=== PATIENT | female | born 1960 | race Caucasian/White ===

== ENCOUNTER 2016-06-12 13:53 | Emergency (ER) | payer MEDICARE, MEDICAID ==
[~2016-06-12] VITALS: Ht 165.1 cm; Wt 67.2 kg
[~2016-06-12 13:53] MED LIST: ALBU18HF2 INH; ASPI81TA2 PO; CALC3.8S EA NOSTRIL; IPRA3AMP AEROSOL; RANI150T7 PO
[2016-06-12 13:57] VITALS: Ht 165.1 cm; Wt 67.2 kg
--- OUTSIDE RECORDS SUMMARY | 2016-06-12 13:57 | XMS REPORT | Continuity of Care Document ---
Author Author [facility] Organization [facility] Address Unknown Phone Unavailable Care Team Providers Care Shutdown Coordinator Name Role Phone Nixon HERNANDEZ MD Primary Care Physician [phone] Insurance Providers Guarantor Myriam Boyd Address [address] [place] [id number] Email DENIED 16 Payer [facility] Plan Policy Number [id number] Subscriber's Name Myriam Boyd Relationship 18 Self Effective Date 16 Expiration Date 16 Payer Medicare Policy Number [id number] Subscriber's Name Myriam Boyd Relationship 18 Self Chief Complaint and Reason for Visit Chief Complaint General Reason for Visit Patient left without being seen Problems Active Problems Medical Problem Onset Date Status Acute bronchitis Unknown Acute Chest pain Unknown Acute Contusion Unknown Acute Contusion Unknown Acute Hypokalemia Unknown Acute Influenza Unknown Acute Insomnia Unknown Acute Low back pain Unknown Acute Sprain of left knee Unknown Acute Sprain of left knee Unknown Acute UTI Unknown Acute Past Problems Medical Problem Onset Date COPD with acute exacerbation Unknown Chronic abdominal pain Unknown Incontinence Unknown Patient left without being seen Unknown Medications Current Home Medications Medication Dose Units Route Directions Days Qty Instructions Start Date Albuterol Sulfate (Ventolin Hfa 90 Mcg/Actuation) 18 Gm Hfa.aer.ad 2 Puff Inhalation Three Times A Day as needed for Shortness Of Air 11/13/14 Aspirin 81 Mg Tab.chew 81 Mg Oral Daily 01/07/16 Calcitonin,[place],Synthetic (Calcitonin-Monument) 3.7 Ml Pickering.pump 1 Pickering Each Nostril Daily 01/26/16 Ipratropium/Albuterol Sulfate (Iprat-Albut 0.5-3(2.5) Mg/3 Ml) 3 Ml Ampul.neb 1 Vial Aerosol Tx. Every 4 Hours as needed for Wheezing 01/26/16 Ranitidine Hcl 150 Mg Tablet 150 Mg Oral Twice A Day as needed for Reflux 01/26/16 Social History Social History Problem Response Recorded Date/Time Onset Date Status Hx Substance Use No 01/26/2016 1:41pm Not Applicable Not Applicable Hx Alcohol Use Y "SELDOM" 01/26/2016 1:41pm Not Applicable Not Applicable Tobacco Usage smoke 08/28/2014 9:28pm Not Applicable Not Applicable Hospital Discharge Instructions No hospital discharge instructions. Plan of Care Discharge Date 04/19/16 3:06pm Disposition 07 LEFT W/O BEING SEEN Condition at Discharge Left Without Being Seen Prescriptions See Medication Section Referrals Nixon HERNANDEZ MD Address: [address], [place] [id number] ROBINSON MALDONADO MD Address: [address] [place] [address] Functional Status No functional status results. Allergies, Adverse Reactions, Alerts Allergen Type Severity Reaction Status Last Updated Sulfa (Sulfonamide Antibiotics) Allergy Unknown RASH Active 04/19/16 Codeine Allergy Unknown Active 04/19/16 Prednisone Allergy Unknown Active 04/19/16 Immunizations Query Response on File Recorded Date/Time Hx Influenza Vaccination Y 201311/13/14 8:34pm Hx Pneumococcal Vaccination No 11/13/14 8:34pm Hx Influenza Vaccination Y 201311/13/14 8:34pm Hx Tetanus Toxoid Vaccination Y 201306/05/14 8:34pm Influenza Vaccine Hx DOESN'T BELIEVE IN THEM 01/26/16 1:41pm Vital Signs Acute Vital Signs Vital Response Date/Time Temperature (Fahrenheit) 98.0 deg F (96.8 - 99.1) 04/19/2016 2:43pm Temperature (Calculated Celsius) 36.82764 degrees C (36.0 - 37.3) 04/19/2016 2:43pm Pulse Rate (adult) 99 bpm (60 - 100) 04/19/2016 2:43pm Respiratory Rate 20 breaths/min (10 - 20) 04/19/2016 2:43pm O2 Sat by Pulse Oximetry 94 % (90 - 100) 04/19/2016 2:43pm Blood Pressure 124/64 mm Hg 04/19/2016 2:43pm Height (Feet) 5 feet 04/19/2016 2:43pm Height (Inches) 5.00 inches 04/19/2016 2:43pm Weight (Kilograms) 68.000 kg 04/19/2016 2:43pm Body Mass Index (BMI) 24.0 04/19/2016 2:43pm Results Laboratory Results Test Name Result Units Flags Reference Collection Date/Time Result Date/ Time Comments White Blood Count 12.0 T/MM3 H 4.5-11.0 01/26/2016 2:pm 01/26/2016 2: 28pm Red Blood Count 4.69 M/MM3 4.00-5.20 01/26/2016 2:pm 01/26/2016 2: 28pm Hemoglobin 14.5 GM/DL 12-16 01/26/2016 2:01/26/2016 2:28pm Hematocrit 42.8 % 36-46 01/26/2016 2:01/26/2016 2:28pm Mean Corpuscular Volume 91.3 UM3 80-100 01/26/2016 2:01/26/2016 2: 28pm Mean Corpuscular Hemoglobin 30.9 UUG 26-34 01/26/2016 2:2015 2:28pm Mean Corpuscular Hemoglobin Concent 33.9 GM/DL 31-37 01/26/2016 2:01/26/2016 2:28pm RDW Standard Deviation 40.6 FL 36.9-50.2 01/26/2016 2:01/26/2016 2 :28pm Platelet Count 390 T/MM3 130-400 01/26/2016 2:01/26/2016 2:28pm Mean Platelet Volume 9.9 UM3 9.4-12.4 01/26/2016 2:01/26/2016 2: 28pm Neutrophils (%) (Auto) 59.4 % 33-66 01/26/2016 2:pm 01/26/2016 2: 28pm Lymphocytes (%) (Auto) 30.5 % 23-45 01/26/2016 2:01/26/2016 2: 28pm Monocytes (%) (Auto) 7.0 % 0-9.0 01/26/2016 2:01/26/2016 2:28pm Eosinophils (%) (Auto) 2.2 % 0-4 01/26/2016 2:01/26/2016 2:28pm Basophils (%) (Auto) 0.3 % 0-2 01/26/2016 2:01/26/2016 2:28pm Immature Granulocyte % (Auto) 0.6 % H 0.0-0.5 01/26/2016 2:2015 2:28pm Absolute Neutrophils (auto) 7.1 T/MM3 1.8-7.7 01/26/2016 2:2015 2:28pm Absolute Lymphocytes (auto) 3.7 T/MM3 1-4.8 01/26/2016 2:2015 2:28pm Absolute Monocytes (auto) 0.8 T/MM3 0-0.8 01/26/2016 2:01/26/2016 2:28pm Absolute Eosinophils (auto) 0.3 T/MM3 0-0.5 01/26/2016 2:2015 2:28pm Absolute Basophils (auto) 0.0 T/MM3 0-0.2 01/26/2016 2:01/26/2016 2:28pm Absolute Immature Granulocyte (auto 0.07 T/MM3 H 0.00-0.03 01/26/2016 2: 01/26/2016 2:28pm Icterus Index < 2 0-7 01/26/2016 2:01/26/2016 2:38pm Chemistry Specimen Hemolysis < 15 0-25 01/26/2016 2:01/26/2016 2 :38pm 0-25: Specimen Exhibited No Hemolysis. Turbidity < 20 0-20 01/26/2016 2:01/26/2016 2:38pm Sodium Level 139 MEQ/L 134-144 01/26/2016 2:01/26/2016 2:38pm Potassium Level 4.1 MEQ/L 3.6-5 01/26/2016 2:01/26/2016 2:38pm Chloride Level 97 MEQ/L L 98-107 01/26/2016 2:01/26/2016 2:38pm Carbon Dioxide Level 30 MEQ/L 22-30 01/26/2016 2:01/26/2016 2: 38pm Anion Gap 12 MEQ/L 5-15 01/26/2016 2:01/26/2016 2:38pm Blood Urea Nitrogen 4.0 MG/DL L 7-17 01/26/2016 2:01/26/2016 2: 38pm Creatinine 0.6 MG/DL L 0.7-1.2 01/26/2016 2:01/26/2016 2:38pm BUN/Creatinine Ratio 7 RATIO 6-26 01/26/2016 2:01/26/2016 2:38pm Glomerular Filtration Rate Calc 103 01/26/2016 2:01/26/2016 2: 38pm Glucose Level 87 MG/DL 65-110 01/26/2016 2:01/26/2016 2:38pm Calculated Osmolality 264 MOSM/KG 261-280 01/26/2016 2:01/26/2016 2:38pm Calcium Level 9.6 MG/DL 8.4-10.2 01/26/2016 2:01/26/2016 2:38pm Total Bilirubin 0.20 MG/DL 0.20-1.30 01/26/2016 2:01/26/2016 2: 38pm Alkaline Phosphatase 81 U/L 38-126 01/26/2016 2:01/26/2016 2:38pm Total Protein 7.6 G/DL 6.3-8.2 01/26/2016 2:01/26/2016 2:38pm Albumin 4.1 G/DL 3.5-5.0 01/26/2016 2:01/26/2016 2:38pm Globulin 3.5 G/DL 2.4-3.6 01/26/2016 2:01/26/2016 2:38pm Albumin/Globulin Ratio 1.2 RATIO 1.1-2.2 01/26/2016 2:01/26/2016 2 :38pm Aspartate Amino Transf (AST/SGOT) 18 U/L 14-36 01/26/2016 2:2015 2:38pm Alanine Aminotransferase (ALT/SGPT) 25 U/L 9-52 01/26/2016 2:21pm 01/25 2:38pm Urine Collection Type CLEANCATCH-MIDSTREAM 01/26/2016 12:34pm 01/25 12:43pm Urine Color YELLOW YELLOW 01/26/2016 12:34pm 01/26/2016 12:43pm Urine Turbidity CLEAR CLEAR 01/26/2016 12:34pm 01/26/2016 12:43pm Urine Specific [place] <=1.005 L 1.015-1.025 01/26/2016 12:34pm 2015 12:43pm Urine pH 6.0 5.0-8.0 01/26/2016 12:34pm 01/26/2016 12:43pm Urine Leukocyte Esterase NEGATIVE NEGATIVE 01/26/2016 12:34pm 2015 12:43pm Urine Nitrite NEGATIVE NEGATIVE 01/26/2016 12:34pm 01/26/2016 12: 43pm Urine Protein NEGATIVE NEGATIVE 01/26/2016 12:34pm 01/26/2016 12: 43pm Urine Glucose (UA) NEGATIVE NEGATIVE 01/26/2016 12:34pm 01/26/2016 12 :43pm Urine Ketones NEGATIVE NEGATIVE 01/26/2016 12:34pm 01/26/2016 12: 43pm Urine Urobilinogen 0.2 EU/DL NORMAL 01/26/2016 12:34pm 01/26/2016 12: 43pm Urine Bilirubin NEGATIVE NEGATIVE 01/26/2016 12:34pm 01/26/2016 12: 43pm Urine Blood NEGATIVE NEGATIVE 01/26/2016 12:34pm 01/26/2016 12:43pm Urinalysis Comment MICROSCOPIC NOT IND. 01/26/2016 12:34pm 2015 12:43pm Procedures Procedure Status Date Provider(s) Routine venipuncture Completed 01/26/16 Comprehen metabolic panel Completed 01/26/16 Urinalysis auto w/o scope Completed 01/26/16 Complete cbc w/auto diff wbc Completed 01/26/16 Ther/proph/diag inj sc/im Completed 01/26/16 Emergency dept visit Completed 01/26/16 090029"INJECTION, KETOROLAC TROMETHAMINE, PER 15 MG" Completed 01/26/16 Encounters Encounter Location Arrival/Admit Date Discharge/Depart Date Attending Provider Departed Emergency Room [facility] 04/19/16 2:38pm 04/19/16 3: 06pm KIRAN KAHN DO Departed Emergency Room [facility] 01/26/16 11:28am 01/26/16 3: 39pm KIRAN KAHN DO Recent Diagnosis
--- NOTE | 2016-06-12 14:08 | NUR ---
PROVIDER Niesha ROSAS APRN AT BEDSIDE
--- NOTE | 2016-06-12 14:16 | NUR ---
ACTIVITY PATIENT AMBULATORY TO RESTROOM TO PROVIDE UA, INSTRUCTIONS PROVIDED, PATIENT V/U. TOLERATES ACTIVITY WELL.
[2016-06-12 14:36] LABS: BLOOD, URINE 2+ (NEGATIVE); COLOR,URINE YELLOW (YELLOW); LEUKOCYTE ESTERASE ,URINE 1+ (NEGATIVE); NITRITE,URINE NEGATIVE (NEGATIVE); UROBILINOGEN,URINE 0.2 EU/DL (NORMAL)
[2016-06-12] MEDS ORDERED: NITR0.4T39 SL (14:36)
[2016-06-12] MEDS ORDERED: ASPI-1085 PO (14:36)
[2016-06-12] MEDS ORDERED: LEVO25TA4 PO (14:36)
[2016-06-12] MEDS ORDERED: ALEN70TA48 PO (14:36)
[2016-06-12] MEDS ORDERED: NYST15CR TOP (14:36)
[2016-06-12] MEDS ORDERED: SIMV40TA5 PO (14:36)
[2016-06-12 14:53] LABS: BACTERIA,URINE 1+ (NEGATIVE); RBC,URINE 20-30 /HPF (0-3); SQUAMOUS EPITHELIAL CELL,UR 0-5
--- NOTE | 2016-06-12 15:10 | ERPDOC ---
Departure Disposition Decision Date: Jun 12, 2016 Disposition Decision Time: 14:50 Disposition: 01 DISCHARGED HOME, SELF-CARE Impression Impression Impression: Primary Impression: UTI Severity: Mild Condition: Stable Seen By: Mid-level only Referrals: Nixon HERNANDEZ MD (PCP) ROBINSON MALDONADO MD (Family) Patient Instructions: Urinary Tract Infection in Women (ED) Problems/Meds/Labs Reviewed?: Yes Medications reviewed and manag: Yes Additional Instructions: Home and rest Stay well hydrated Take Keflex antibiotic three times a day for 5 days Use Pyridium as needed for bladder pain/spasms. Follow-up with Dr. Hernandez in 2-3 days if not improving or return to the emergency room for worsening symptoms Follow up care ordered?: Yes Mental Status: Alert, Oriented Scripts Phenazopyridine HCl (Pyridium) 200 Mg Tablet 190 MG PO PC Y for SPASMS for 10 Days, #27 TAB Take 2 tabs, by mouth, 3 times a day AFTER meals, as needed. Prov: SETH ROSAS APRN 06/12/16 Cephalexin (Keflex) 500 Mg Capsule 500 MG PO TID, #15 CAP Prov: SETH ROSAS APRN 06/12/16 HPI - Female General Chief Complaint: Female Urogenital Problems Stated Complaint: PAIN IN BLADDER Time Seen by Provider: 14:07 Source: patient Exam Limitations: no limitations HPI - Female Initial Comments Myriam is a 55 yr old female who presents to ER complaining of dysuria and burning with urination for the past 2 days. Reports has not had a UTI since having a bladder sling in March of 2015. Denies fevers, chills, abdominal pain, vomiting or flank pain. Occurred At: home Onset: Gradual Duration: 12-24 hrs Pain Scale: Now: 2/10 Severity/Quality: burning Location: urethral Radiation: none 1 - pain Allergies: Coded Allergies: Sulfa (Sulfonamide Antibiotics) (Verified Allergy, Unknown, RASH, 06/12/16) codeine (Verified Allergy, Unknown, 06/12/16) prednisone (Verified Allergy, Unknown, 06/12/16) ciprofloxacin (Verified Adverse Reaction, Mild, DIARRHEA, 06/12/16) Past History Past Medical History Metabolic: hypothyroidism Respiratory: COPD, pneumonia Female: UTI Neurological: TIA Musculoskeletal: osteoarthritis Psychological: anxiety, depression Surgical History General: appendix, tonsils Cardiac: cardiac cath Reproductive/: other (right ovarian surgery, bladder sling) Family History Family History: Negative Family PMH: FOUND: other Vaccines Hx Influenza Vaccination: Yes (2013) Hx Pneumococcal Vaccination: No Social History Does patient use chewing tobac: No # of Packs/Tins per Day: 1.5 Substance Use Type: does not use Alcohol Intake: none Marital Status: Single Housing: apartment Social History Comments Primary care provider, Dr. Benson Hernandez Review of Systems Constitutional Constitutional: DENIES: chills, dizziness, fever, weakness Eyes General: DENIES: pain Lids/Accessories: DENIES: erythema, lumps/nodules ENMT Sinuses: DENIES: congestion, pain, rhinorrhea Mouth/Throat: DENIES: change in voice, sore throat Cardiovascular Cardiac: DENIES: chest pain, dyspnea on exertion, murmur Rhythm/Rate: DENIES: irregular beat, palpitations Pulmonary Respiratory: DENIES: cough, dyspnea, tachypnea GI Upper Abdomen: DENIES: nausea, pain, vomiting Lower Abdomen: diarrhea, DENIES: blood in stool, constipation, pain General: burning, dysuria, frequency, see HPI, urgency, DENIES: pain Musculoskeletal General: DENIES: pain, weakness Integumentary Skin: DENIES: rash Neurological General: DENIES: ataxia, change in strength, headache, numbness, seizures, syncope, weakness Psychiatric Psychiatric: DENIES: depression, emotional instability, irritability, nervousness All other Systems All Other Systems: Reviewed and Negative Physical Exam General Vitals and Pain First Documented Vital Signs Date Time Temp Pulse Resp B/P Pulse Ox O2 Delivery O2 Flow Rate FiO2 06/12/16 13:57 98.7 93 17 111/68 94 Room Air Weight: Kilograms: 67.200 Height (feet): 5 Height (inches): 5.00 Triage Pain Scale: Normal Exams: Head: Normocephalic w/o trauma Eyes: Pupils are PERRLA w/ EOMI, No scleral icterus, irritation, or foreign bodies noted Chest/Resp: Clear all song, with good airflow, and symmetry bilaterally CV: Regular rate and rhythm, without murmur or gallop, Pulses 2+ all extremities, capillary refill, <2 seconds all ext., no pedal edema noted Abdomen: Bowel sounds positive, soft, non-tender, non-distended, no hepatosplenomegaly, masses or bruits noted Musculoskeletal: No tenderness, or deformity noted, good range of motion, all extremities Integumentary: No rashes, hives, or bruising noted, hair and nails, without abnormality Neurologic: Patient is alert, and oriented, cranial nerves, motor/sensory/ cerebellar, exams w/o gross deficits, to observation Psychiatric: Patient exhibits, appropriate attention, emotion and affect Differential Diagnoses Considering: IBS, IBD, Pyelonephritis, Renal Colic, UTI, Bacterial Vaginitis, Yeast Vaginitis, Trichomonas Vaginitis Progress Results/Orders Orders Procedure Category Date Status Time UA, LAB 06/12/16 Complete Dip&Micro(Complete) & 14:21 Cephalexin Capsule PHA 06/12/16 Complete (Keflex) 15:15 Phenazopyridine Hcl PHA 06/12/16 Complete (Pyridium Eq.) 15:15 Lab Results Laboratory Tests Test 06/12/16 14:21 Urine Collection Type Urine Color Yellow Urine Turbidity Sl cloudy Urine pH 5.5 Urine Specific [place] <=1.005 Urine Protein Negative Urine Glucose (UA) Negative Urine Ketones Negative Urine Blood 2+ Urine Nitrite Negative Urine Bilirubin Negative Urine Urobilinogen 0.2EU/DL Urine Leukocyte Esterase 1+ Urine RBC 20-30/HPF Urine WBC 5-10/HPF Urine Squamous Epithelial Cells 0-5 Urine Bacteria 1+ Urine Culture Indicated Cult not indicated Medications Current ED Medications Cephalexin HCl (Keflex) 500 mg O ONCE PO Last administered on 06/12/16 15:16 ; Start 06/12/16 at 15:15; Stop 06/12/16 at 15:16; Status DC Phenazopyridine HCl (Pyridium Eq.) 190 mg O ONCE PO Last administered on 15:16; Start 06/12/16 at 15:15; Stop 06/12/16 at 15:16; Status DC Progress Progress Reviewed urinalysis results with patient and plan of care. Will place patient on Keflex 3 times a day for 5 days. Patient was given Pyridium to use for bladder pain and spasm. Encourage her to increase oral intake. (Water) to 8 glasses a day during acute infection. Instructed her follow up with primary care provider Benson Hernandez this week. SETH ROSAS APRN Jun 12, 2016 15:10
[2016-06-12] MEDS ORDERED: PHEN-779 PO (15:14)
[2016-06-12] MEDS ORDERED: CEPH-583 PO (15:14)
[2016-06-12] MEDS ORDERED: CEPHALEXIN 500 MG CAPSULE PO ONE (15:15)
[2016-06-12] MEDS ORDERED: PHENAZOPYRIDINE 95 MG TABLET PO ONE (15:15)
[2016-06-12 15:21] VITALS: BP 132/67; PULSE 74; RESP 18; TEMP 98.7; O2SAT 95
== END 2016-06-12 15:21 | disposition home or self-care (01) ==
LOC: ED 13:53
DX: N39.0 Urinary tract infection, site not specified (principal)
CPT/HCPCS: 81001; 99283; A9270